=== PATIENT | male | born 1980 | race Caucasian/White ===

== ENCOUNTER 2018-11-03 11:51 | Emergency (ER) | payer SELFPAY ==
[~2018-11-03] VITALS: Ht 172.7 cm; Wt 77.0 kg
[2018-11-03] MEDS ORDERED: VISCOUS LIDOCAINE 2% 15 ML UDC PO STA (15:36)
[2018-11-03] MEDS ORDERED: MAGNESIUM/ALUMINUM HYDROXIDE/SIMETHICONE 30ML UDC PO STA (15:36)
[2018-11-03] MEDS ORDERED: ONDANSETRON HCL 4MG/2ML INJ IV STA (15:36)
[2018-11-03] MEDS ORDERED: DICYCLOMINE 10 MG/5 ML ORAL SYR PO STA (15:36)
[2018-11-03 18:11] LABS: BASOPHILS % 1.3 % (0.0-2.0); EOSINOPHILS % 2.3 % (0.0-5.0); HEMATOCRIT. 33.2 % (42.0-52.0); HEMOGLOBIN. 10.4 g/dL (14.0-18.0); LYMPHOCYTES % 35.4 % (20.0-50.0); MEAN CORPUSCULAR HEMOGLOBIN 22.7 pg (28.0-32.0); MEAN CORPUSCULAR VOLUME 72.8 fL (80.0-94.0); MEAN PLATELET VOLUME 8.4 fl (7.4-10.4); MONOCYTES % 5.5 % (2.0-8.0); NEUTROPHILS % 55.5 % (40.0-76.0); PLATELET 92 x1000/uL (130-400); RED BLOOD CELL COUNT 4.56 mill/uL (4.7-6.1); RED CELL DISTRIBUTION WIDTH 18.8 % (11.6-14.6)
[2018-11-03 18:15] LABS: CHLORIDE 102 mEq/L (98-107)
[2018-11-03 18:19] LABS: ETHANOL BLOOD 139 mg/dL
[2018-11-03 18:21] VITALS: BP 147/91
== END 2018-11-03 19:17 | disposition home or self-care (01) ==
LOC: ER 11:51
DX: F10.229 Alcohol dependence with intoxication, unspecified (principal); Y90.6 Blood alcohol level of 120-199 mg/100 ml
CPT/HCPCS: 36415; 71045; 80053; 85025; 87186; 93005; 96374; 99284; J2405

== ENCOUNTER 2018-12-14 14:17 | Emergency (ER) | payer SELFPAY ==
[~2018-12-14] VITALS: Ht 167.6 cm; Wt 65.0 kg
[2018-12-14 14:26] VITALS: BP 125/80
== END 2018-12-14 16:56 | disposition left against medical advice (07) ==
LOC: ER 14:17
DX: F10.129 Alcohol abuse with intoxication, unspecified (principal); Z53.21 Procedure and treatment not carried out due to patient leaving prior to being seen by health care provider; Y90.9 Presence of alcohol in blood, level not specified

== ENCOUNTER 2018-12-14 21:01 | Emergency (ER) | payer SELFPAY ==
[~2018-12-14] VITALS: Ht 167.6 cm; Wt 72.0 kg
[2018-12-14 21:03] VITALS: BP 133/82
== END 2018-12-15 01:50 | disposition left against medical advice (07) ==
LOC: ER 21:01
DX: R07.89 Other chest pain (principal); Z53.21 Procedure and treatment not carried out due to patient leaving prior to being seen by health care provider
CPT/HCPCS: 93005

== ENCOUNTER 2018-12-16 20:36 | Emergency (ER) | payer SELFPAY ==
[~2018-12-16] VITALS: Ht 165.1 cm; Wt 68.0 kg
[2018-12-17] MEDS ORDERED: ONDANSETRON HCL 4MG/2ML INJ IV STA (00:24)
[2018-12-17] MEDS ORDERED: SODIUM CHLORIDE 0.9% 1,000 ML IV ONE (00:24)
[2018-12-17 00:55] LABS: BASOPHILS % 1.3 % (0.0-2.0); EOSINOPHILS % 3.1 % (0.0-5.0); HEMATOCRIT. 29.7 % (42.0-52.0); HEMOGLOBIN. 9.2 g/dL (14.0-18.0); LYMPHOCYTES % 36.3 % (20.0-50.0); MEAN CORPUSCULAR HEMOGLOBIN 22.3 pg (28.0-32.0); MEAN CORPUSCULAR VOLUME 72.1 fL (80.0-94.0); MEAN PLATELET VOLUME 6.7 fl (7.4-10.4); MONOCYTES % 4.7 % (2.0-8.0); NEUTROPHILS % 54.6 % (40.0-76.0); PLATELET 158 x1000/uL (130-400); RED BLOOD CELL COUNT 4.12 mill/uL (4.7-6.1); RED CELL DISTRIBUTION WIDTH 20.1 % (11.6-14.6)
[2018-12-17 01:02] LABS: CHLORIDE 104 mEq/L (98-107)
[2018-12-17 03:46] VITALS: BP 127/54
== END 2018-12-17 03:48 | disposition home or self-care (01) ==
LOC: ER 20:59
DX: F10.129 Alcohol abuse with intoxication, unspecified (principal); R51 Headache; I10 Essential (primary) hypertension; Y90.9 Presence of alcohol in blood, level not specified
CPT/HCPCS: 36415; 70450; 80053; 83690; 85025; 96374; 99284; J2405; J7030